=== PATIENT | female | born 1985 | race Two or more races ===

== ENCOUNTER 2017-06-17 22:19 | Emergency (ER) | payer SELFPAY ==
[2017-06-18] MEDS ORDERED: IBUPROFEN 600 MG TABLET PO ONE (00:11)
[2017-06-18] MEDS ORDERED: PSEUDOEPHEDRINE HCL 30 MG TABLET PO ONE (00:11)
[2017-06-18] MEDS ORDERED: LORATADINE 10 MG TABLET PO ONE (00:11)
[2017-06-18] MEDS ORDERED: GUAIFENESIN 600 MG TABLET.SA PO ONE (00:11)
[2017-06-18 00:27] VITALS: BP 112/76
--- NOTE | 2017-06-18 00:28 | ER Document Report ---
ED Flu Like - General Chief Complaint: Flu Symptoms Stated Complaint: DIZZINESS Time Seen by Provider: 06/17/17 23:53 Mode of Arrival: Ambulatory Information source: Patient Notes: 31-year-old female presents to ED for cough cold congestion flulike symptoms 4 days. She states she is also had ear pain for the 4 days with headache sneezing runny nose. TRAVEL OUTSIDE OF THE [place] IN LAST 30 DAYS: No - HPI Onset: Other - 4 days Timing/Duration: Persistent Quality of pain: Achy Severity: Moderate Pain Level: 3 Associated symptoms: Body/muscle aches, Chills, Earache, Fever, Rhinnorhea, Sinus pain/drainage, Shortness of breath, Sore throat Similar symptoms previously: Yes Recently seen / treated by doctor: No - Related Data Allergies/Adverse Reactions: No Known Allergies Allergy (Unverified 06/17/17 23:38) Past Medical History - General Information source: Patient - Social History Smoking Status: Never Smoker Cigarette use (# per day): No Chew tobacco use (# tins/day): No Smoking Education Provided: No Frequency of alcohol use: None Drug Abuse: None Occupation: [employer] Lives with: Family Family History: Reviewed & Not Pertinent Patient has suicidal ideation: No Patient has homicidal ideation: No - Past Medical History Cardiac Medical History: Reports: None Pulmonary Medical History: Reports: None EENT Medical History: Reports: None Neurological Medical History: Reports: None Endocrine Medical History: Reports: None Renal/ Medical History: Reports: None Malignancy Medical History: Reports: None GI Medical History: Reports: None Musculoskeltal Medical History: Reports None Skin Medical History: Reports None Psychiatric Medical History: Reports: None Traumatic Medical History: Reports: None Infectious Medical History: Reports: None Surgical Hx: Negative Past Surgical History: Reports: None - Immunizations Immunizations up to date: Yes Review of Systems - Review of Systems Constitutional: Fever, Recent illness EENT: Ear pain, Nose discharge, Sinus pressure, Sinus discharge, Throat pain Respiratory: Cough Gastrointestinal: No symptoms reported Genitourinary: No symptoms reported Musculoskeletal: Muscle pain Skin: No symptoms reported Neurological/Psychological: Headaches -: Yes All other systems reviewed and negative Physical Exam - Vital signs Vitals: Temp Pulse Resp BP Pulse Ox 98.5 F 68 18 121/64 99 06/17/17 22:57 06/17/17 22:57 06/17/17 22:57 06/17/17 22:57 06/17/17 22:57 Interpretation: Normal - HEENT Head: Normocephalic, Atraumatic Eyes: Normal Pupils: PERRL Ears: Normal External canal: Normal Tympanic membrane: Normal Sinus: Normal Nasal: Purulent discharge, Swelling Mouth/Lips: Normal Mucous membranes: Normal Pharynx: Post nasal drainage. No: Erythema, Exudate, Peritonsillar abscess, Tonsillar hypertrophy Neck: Normal - Respiratory Respiratory status: No respiratory distress Chest status: Nontender Breath sounds: Nonproductive cough. No: Productive cough, Rales, Rhonchi, Stridor, Wheezing Chest palpation: Normal - Neurological Neuro grossly intact: Yes Cognition: Normal Orientation: AAOx4 [place] Coma Scale Eye Opening: Spontaneous [place] Coma Scale Verbal: Oriented [place] Coma Scale Motor: Obeys Commands [place] Coma Scale Total: 15 Speech: Normal Cranial nerves: Normal Cerebellar coordination: Normal Motor strength normal: LUE, RUE, LLE, RLE Additional motor exam normals: Equal manager corporate Babinski reflex: Normal (flexor plantar) Sensory: Normal Knee - Reflex grade: 2 = Normal Ankle - Reflex grade: 2 = Normal Course - Re-evaluation Re-evalutation: 06/18/17 01:10 Consistent with a couple respiratory infection. Patient was treated with Claritin, Sudafed, Mucinex, and ibuprofen and instructions given concerning the same medications for home use as well as Flonase. Patient was discharged home to follow-up with her primary doctor. - Vital Signs Vital signs: Temp Pulse Resp BP Pulse Ox 98.2 F 95 16 112/76 99 06/18/17 00:22 06/18/17 00:22 06/18/17 00:22 06/18/17 00:22 06/17/17 22:57 Discharge - Discharge Clinical Impression: URI (upper respiratory infection) Qualifiers: URI type: unspecified URI Qualified Code(s): J06.9 - Acute upper respiratory infection, unspecified Condition: Stable Disposition: HOME, SELF-CARE Instructions: Family Physicians / Practices Additional Instructions: UPPER RESPIRATORY ILLNESS: You have a viral infection of the respiratory passages -- a "cold." This common infection causes nasal congestion, drainage, and often sore throat and cough. It is highly contagious. The disease usually lasts about 10 to 14 days. There is no "cure" for the viral infection -- it must run its course. If there is a complication, such as bacterial infection in the nose, sinuses, middle ear, or bronchial tubes, antibiotics may be required. The antibiotics won't affect the virus. Drink plenty of fluids. A humidifier may help. An expectorant medication or decongestant may make you more comfortable. Use acetaminophen or ibuprofen for fever or aches. See the doctor if fever persists over two days, if there is any significant worsening of your symptoms, or if you simply fail to improve as expected. DECONGESTANT MEDICATION: A decongestant medicine has been suggested. Often this medicine is combined in the same tablet with an antihistamine or expectorant. This type of medicine is helpful in treating a bad cold or sinus condition, as well as in treatment of the nasal congestion of hay fever. It is not of much benefit for lung infections. Decongestant medicines are related to stimulants. They can cause an increase in blood pressure and heart rate. Persons with heart disease and high blood pressure should not take decongestants without discussing this with the physician. If you develop palpitations, chest pain, headache, or tremors, stop the medicine and consult your physician. COUGH-SUPPRESSANT & EXPECTORANT MEDICATION: You are to use a cough medication as needed for relief of symptoms. This medicine is a combination of an expectorant (to make the mucous thinner and more easily "coughed up") and a cough suppressant (to reduce the frequency of coughing). The cough-suppressant medicine is related to narcotics. You may experience mild nausea and sleepiness. Some patients who are very sensitive to narcotics may have stomach pain from this medicine. Taking the medicine with food reduces these side effects. Do not drive or work with machinery until you know how this medicine affects you. The expectorant should have no side effects. Iodine-containing expectorants (such as organidin) should not be taken by persons with active thyroid disease unless approved by your doctor. Call the doctor if you develop shortness of breath, hives, rash, itching, lightheadedness, or severe nausea and vomiting. USE OF ACETAMINOPHEN (Tylenol): Acetaminophen may be taken for pain relief or fever control. It's much safer than aspirin, offering a wider range of "safe" dosages. It is safe during . Some brand names are Tylenol, Panadol, Datril, Anacin 3, Tempra, and Liquiprin. Acetaminophen can be repeated every four hours. The following are maximum recommended dosages: >89 pounds or adults 650 mg to 900 mg Acetaminophen can be repeated every four hours. Maximum dose not to exceed 4000 mg a day. You were treated with Claritin 10 mg Sudafed 30 mg Mucinex 600 mg and ibuprofen 600 mg in the emergency room for your cough cold and congestion. These are over -the-counter medications and you can get these at your local pharmacy. I also recommend use of Flonase according to the package instructions. FOLLOW-UP CARE: If you have been referred to a physician for follow-up care, call the physician s office for an appointment as you were instructed or within the next two days. If you experience worsening or a significant change in your symptoms, notify the physician immediately or return to the Emergency Department at any time for re-evaluation. Forms: Return to Work
== END 2017-06-18 00:34 | disposition home or self-care (01) ==
LOC: ER 22:19
DX: J06.9 Acute upper respiratory infection, unspecified (principal); R42 Dizziness and giddiness; R51 Headache; M79.1 Myalgia; R50.9 Fever, unspecified
CPT/HCPCS: 99284

== ENCOUNTER 2017-08-25 23:52 | Emergency (ER) | payer MEDICAID ==
[2017-08-25 23:57] VITALS: BP 114/64
[2017-08-26 00:52] LABS: APPEARANCE,URINE CLEAR; BILIRUBIN,URINE NEGATIVE (NEGATIVE); COLOR,URINE YELLOW; GLUCOSE, URINE NEGATIVE (NEGATIVE); KETONES,URINE NEGATIVE (NEGATIVE); LEUKOCYTE ESTERASE,URINE NEGATIVE (NEGATIVE); NITRITE,URINE NEGATIVE (NEGATIVE); PROTEIN,URINE NEGATIVE (NEGATIVE); URINE SPECIFIC GRAVITY 1.008; UROBILINOGEN,URINE NEGATIVE mg/dL (<2.0)
--- NOTE | 2017-08-26 01:01 | ER Document Report ---
ED General - General Chief Complaint: Vaginal Itching Stated Complaint: VAGINAL RASH Time Seen by Provider: 08/26/17 00:16 Mode of Arrival: Ambulatory Information source: Patient TRAVEL OUTSIDE OF THE [place] IN LAST 30 DAYS: No - HPI Notes: 31-year-old female otherwise healthy presents to the emergency department with report that she had a Pap smear last week without complication, but since then she reports mild redness and itching around the vaginal area with pain over the left lower quadrant region. The patient denies any new creams or exposures or new detergents or new underwear. She denies any vaginal discharge. She has no history of diabetes, but there is a family history of diabetes. There has been no dysuria or frequency. No other skin rash. The patient reports no prior history of the same. The patient went to have the pelvic exam performed because of having irregular menstrual cycles and being somewhat late on her menstrual cycle. - Related Data Allergies/Adverse Reactions: No Known Allergies Allergy (Unverified 06/17/17 23:38) Past Medical History - General Information source: Patient - Social History Smoking Status: Never Smoker Frequency of alcohol use: None Drug Abuse: None Lives with: Friend Family History: DM Renal/ Medical History: Denies: Hx Peritoneal Dialysis - Immunizations Immunizations up to date: Yes Review of Systems - Review of Systems Notes: REVIEW OF SYSTEMS: CONSTITUTIONAL : Denies fever, chills, or sweats. Denies recent illness. EENT: Denies eye, ear, throat, or mouth pain or symptoms. Denies nasal or sinus congestion or discharge. Denies throat, tongue, or mouth swelling or difficulty swallowing. CARDIOVASCULAR: Denies chest pain. Denies palpitations or racing or irregular heart beat. Denies ankle edema. RESPIRATORY: Denies cough, cold, or chest congestion. Denies shortness of breath, difficulty breathing, or wheezing. GASTROINTESTINAL: Denies abdominal distention. Denies nausea, vomiting, or diarrhea. Denies blood in vomitus, stools, or per rectum. Denies black, tarry stools. Denies constipation. GENITOURINARY: Denies difficulty urinating, painful urination, burning, frequency, blood in urine, or discharge. FEMALE GENITOURINARY: Denies vaginal discharge or odor. MUSCULOSKELETAL: Denies back or neck pain or stiffness. Denies joint pain or swelling. SKIN: Denies lesions or sores. HEMATOLOGIC : Denies easy bruising or bleeding. LYMPHATIC: Denies swollen, enlarged glands. NEUROLOGICAL: Denies confusion or altered mental status. Denies passing out or loss of consciousness. Denies dizziness or lightheadedness. Denies headache. Denies weakness or paralysis or loss of use of either side. Denies problems with gait or speech. Denies sensory loss, numbness, or tingling. Denies seizures. PSYCHIATRIC: Denies anxiety or stress. Denies depression, suicidal ideation, or homicidal ideation. ALL OTHER SYSTEMS REVIEWED AND NEGATIVE. Dictation was performed using [employer] voice recognition software Physical Exam - Vital signs Vitals: Temp Pulse Resp BP Pulse Ox 98.2 F 73 12 114/64 98 08/25/17 23:55 08/25/17 23:55 08/25/17 23:55 08/25/17 23:55 08/25/17 23:55 - Notes Notes: PHYSICAL EXAMINATION: GENERAL: Well-appearing, well-nourished and in no acute distress. HEAD: Atraumatic, normocephalic. EYES: Pupils equal round and reactive to light, extraocular movements intact, conjunctiva are normal. ENT: Nares patent, oropharynx clear without exudates. Moist mucous membranes. NECK: Normal range of motion, supple without lymphadenopathy LUNGS: Breath sounds clear to auscultation bilaterally and equal. No wheezes rales or rhonchi. HEART: Regular rate and rhythm without murmurs ABDOMEN: Soft, nontender, nondistended abdomen. No guarding, no rebound. No masses appreciated. Female : Normal external female genitalia. No significant discharge besides mild evidence for ongoing menstrual bleeding. There was an IUD in appropriate location. The patient had mild cervical motion pain, but mainly left adnexal pain noted on exam. No obvious mass appreciated. Musculoskeletal: Normal range of motion, no pitting or edema. No cyanosis. NEUROLOGICAL: Cranial nerves grossly intact. Normal speech, normal gait. Normal sensory, motor exams PSYCH: Normal mood, normal affect. SKIN: Course - Re-evaluation Re-evalutation: 08/26/17 01:07 Ultrasound, blood work, DNA probe, urinalysis, urine , and wet prep ordered. Consider ovarian cyst versus PID. No evidence for obvious yeast infection or allergic response. 08/26/17 01:52 Laboratory studies show mild bacterial vaginosis and possible yeast infection, although there is not significant erythema noted on the vaginal exam. CBC was normal, urinalysis normal. No evidence for . Ultrasound is pending. - Vital Signs Vital signs: Temp Pulse Resp BP Pulse Ox 98.2 F 73 12 114/64 98 08/25/17 23:55 08/25/17 23:55 08/25/17 23:55 08/25/17 23:55 08/25/17 23:55 - Laboratory Result Diagrams: 08/26/17 01:15 Laboratory results interpreted by me: 08/26/17 00:30 Urine Blood SMALL H Discharge - Discharge Clinical Impression: Bacterial vaginosis Condition: Stable Disposition: HOME, SELF-CARE Instructions: Vaginosis, Bacterial ([facility]) Prescriptions: Metronidazole [Flagyl 500 mg Tablet] 500 mg PO BID #14 tablet
[2017-08-26 01:16] LABS: BACTERIA (WET MOUNT) 4+ BACTERIA SEEN; EPITHELIALS (WET MOUNT) 3+ EPITHELIALS SEEN; RBCS (WET MOUNT) 1+ RBCS SEEN; T.VAGINALIS (WET MOUNT) NO TRICHOMONAS SEEN; WBCS (WET MOUNT) 4+ WBCS SEEN; YEAST (WET MOUNT) YEAST SEEN
[2017-08-26 01:23] LABS: ABSOLUTE BASOPHILS # (AUTO) 0.1 10^3/uL (0.0-0.2); ABSOLUTE EOSINOPHILS # (AUTO) 0.2 10^3/uL (0.0-0.6); ABSOLUTE LYMPHOCYTES (AUTO) 2.1 10^3/uL (0.5-4.7); ABSOLUTE MONOCYTES (AUTO) 0.6 10^3/uL (0.1-1.4); ABSOLUTE NEUT (AUTO) 3.8 10^3/uL (1.7-8.2); EOSINOPHILS % (AUTO) 3.3 % (0-6); HEMATOCRIT 43.1 % (36.0-47.0); HEMOGLOBIN 14.7 g/dL (12.0-15.5); LYMPHOCYTES % (AUTO) 31.1 % (13-45); MEAN CORPUSCULAR HEMOGLOBIN 28.9 pg (27.0-33.4); MEAN CORPUSCULAR HGB CONC 34.1 g/dL (32.0-36.0); MEAN CORPUSCULAR VOLUME 85 fl (80-97); MONOCYTES % (AUTO) 8.4 % (3-13); PLATELET COUNT 197 10^3/uL (150-450); RED BLOOD COUNT 5.09 10^6/uL (3.72-5.28); RED CELL DISTRIBUTION WIDTH 13.3 % (11.5-14.0); SEGMENTED NEUTROPHILS % (AUTO) 56.2 % (42-78); TOTAL CELLS COUNTED % (AUTO) 100 %; WHITE BLOOD COUNT 6.7 10^3/uL (4.0-10.5)
[2017-08-26] MEDS ORDERED: FLUCONAZOLE 100 MG TABLET PO ONE (01:54)
[2017-08-26 02:38] LABS: CHLAM PCR NOT DETECTED (NOT DETECT); GON PCR NOT DETECTED (NOT DETECT)
--- NOTE | 2017-08-26 04:12 | RADIOLOGY REPORT (SQ) ---
EXAM DESCRIPTION: Complete pelvic ultrasound obtained with transvaginal imaging. CLINICAL HISTORY: 31 years Female, Left adnexal pain COMPARISON: None. TECHNIQUE: Complete pelvic ultrasound obtained with transvaginal imaging. Limited color spectral Doppler imaging of the ovaries. FINDINGS: The uterus measures 7.3 x 4.3 x 3.7 cm. IUD identified in the endometrium appearing to be in appropriate ultrasound position. The cervix measures 2.3 cm. No myometrial abnormalities. No free pelvic fluid. The right ovary measures 2.6 x 2.2 x 1.2 cm. Left ovary measures 4.8 x 3.6 x 3.7 cm. There is a 3.4 x 3.1 x 3.3 cm simple left ovarian cyst. This is almost certainly benign. No imaging follow-up required. Limited color and spectral Doppler images demonstrate flow within the ovaries bilaterally. IMPRESSION: No abnormality noted on pelvic ultrasound. IUD in place
== END 2017-08-26 04:37 | disposition home or self-care (01) ==
LOC: ER 23:52
DX: N76.0 Acute vaginitis (principal); B96.89 Other specified bacterial agents as the cause of diseases classified elsewhere; N83.292 Other ovarian cyst, left side; R10.32 Left lower quadrant pain; Z97.5 Presence of (intrauterine) contraceptive device; Z98.890 Other specified postprocedural states
CPT/HCPCS: 99284; 36415; 87210; 85025; 81025; 81001; 87491; 87591; 76856; 93976; J3490

== ENCOUNTER 2019-05-20 17:36 | Emergency (ER) | payer MEDICAID ==
[2019-05-20 17:44] VITALS: BP 140/60
== END 2019-05-20 19:45 | disposition left against medical advice (07) ==
LOC: ER 17:36
DX: Z53.21 Procedure and treatment not carried out due to patient leaving prior to being seen by health care provider (principal)

== ENCOUNTER 2019-08-02 10:17 | Emergency (ER) | payer SELFPAY ==
[2019-08-02 10:22] VITALS: BP 127/77
[2019-08-02] MEDS ORDERED: PREDNISONE 20 MG TABLET PO ONE (10:35)
--- NOTE | 2019-08-02 10:38 | ER Document Report ---
HPI - HPI Patient complains to provider of: Skin rash Time Seen by Provider: 08/02/19 10:31 Onset: Other - 3 weeks Onset/Duration: Worse Pain Level: 2 Context: Patient complains of skin rash to the extremities and trunk for the past 3 weeks. Patient denies any recent new medications foods or detergents. Patient denies any difficulty breathing or difficulty swallowing. Associated Symptoms: denies: Nonproductive cough, Productive cough, Fever, Sore throat Exacerbated by: Denies Relieved by: Denies Similar symptoms previously: No Recently seen / treated by doctor: No - ROS ROS below otherwise negative: Yes Systems Reviewed and Negative: Yes All other systems reviewed and negative - CARDIOVASCULAR Cardiovascular: DENIES: Chest pain - RESPIRATORY Respiratory: DENIES: Trouble Breathing, Coughing - GASTROINTESTINAL Gastrointestinal: DENIES: Nausea, Patient vomiting - REPRODUCTIVE Reproductive: DENIES: : - DERM Skin Color: Normal Skin Problems: Rash Past Medical History - General Information source: Patient - Social History Smoking Status: Never Smoker Chew tobacco use (# tins/day): No Frequency of alcohol use: None Drug Abuse: None Lives with: Family Family History: Reviewed & Not Pertinent, DM Patient has suicidal ideation: No Patient has homicidal ideation: No - Medical History Medical History: Negative Renal/ Medical History: Denies: Hx Peritoneal Dialysis Surgical Hx: Negative - Immunizations Immunizations up to date: Yes Vertical Provider Document - CONSTITUTIONAL Agree With Documented VS: Yes Exam Limitations: No Limitations General Appearance: WD/WN, No Apparent Distress - INFECTION CONTROL TRAVEL OUTSIDE OF THE [place] IN LAST 30 DAYS: No - HEENT HEENT: Atraumatic, Normal ENT Exam, Normocephalic - NECK Neck: Normal Inspection, Supple - RESPIRATORY Respiratory: Breath Sounds Normal, No Respiratory Distress - CARDIOVASCULAR Cardiovascular: Regular Rate, Regular Rhythm, No Murmur - BACK Back: Normal Inspection - MUSCULOSKELETAL/EXTREMETIES Musculoskeletal/Extremeties: AMADOU ARRIAGA - NEURO Level of Consciousness: Awake, Alert, Appropriate Motor/Sensory: No Motor Deficit - DERM Integumentary: Warm, Dry, Rash - Erythematous maculopapular rash in patches to the trunk and scattered lesions to the extremities Course - Re-evaluation Re-evalutation: 08/02/19 10:43 Patient with a rash to the trunk and extremities. Concern for Hans Manav or acute anaphylaxis. Discussed with patient possibility of possible viral source of rash although allergic source could not be excluded. Discussed with patient worsening signs or symptoms that she should return immediately for. Patient verbalized understanding of instructions and is agreeable with discharge plan of care. - Vital Signs Vital signs: Temp Pulse Resp BP Pulse Ox 97.8 F 81 16 127/77 H 100 08/02/19 10:29 08/02/19 10:21 08/02/19 10:21 08/02/19 10:21 08/02/19 10:21 Discharge - Discharge Clinical Impression: Skin rash Condition: Stable Disposition: HOME, SELF-CARE Instructions: Antihistamines ([facility]), Use of Diphenhydramine, Steroid Medication Additional Instructions: Return immediately for any new or worsening symptoms Followup with your primary care provider, call tomorrow to make a followup appointment Prescriptions: Triamcinolone Acetonide [Aristocort 0.1% Cream] 1 applic TP TID #60 gm Prednisone [Deltasone 10 mg Tablet] 10 mg PO ASDIR #21 tablet Famotidine [Pepcid 20 mg Tablet] 20 mg PO BID #12 tablet Referrals: [facility] [Provider Group] - Follow up as needed [facility] ([place], [place]) [Provider Group] - Follow up as needed
== END 2019-08-02 10:42 | disposition home or self-care (01) ==
LOC: ER 10:17
DX: R21 Rash and other nonspecific skin eruption (principal)
CPT/HCPCS: 99282; J7512

== ENCOUNTER 2020-04-09 15:15 | Emergency (ER) | payer SELFPAY ==
[2020-04-09] MEDS ORDERED: HYDROCODONE/ACETAMINOPHEN 5-325 MG TABLET PO ONE (17:25)
--- NOTE | 2020-04-09 17:28 | ER Document Report ---
HPI - HPI Time Seen by Provider: 04/09/20 17:22 Context: Patient states that she fell in her bathroom about 3 months ago and on her right shoulder. Patient states that she has had right clavicular pain for the past 2 weeks. Patient complains of right upper back pain for the past 2 weeks as well. Patient is right-hand dominant. Patient denies any cough cold symptoms or fever. Associated Symptoms: denies: Nonproductive cough, Productive cough Exacerbated by: Movement Relieved by: Denies Similar symptoms previously: No Recently seen / treated by doctor: No - ROS ROS below otherwise negative: Yes Systems Reviewed and Negative: Yes All other systems reviewed and negative - CONSTITUTIONAL Constitutional: DENIES: Fever - NEURO Neurology: DENIES: Headache, Weakness - CARDIOVASCULAR Cardiovascular: DENIES: Chest pain - RESPIRATORY Respiratory: DENIES: Coughing - REPRODUCTIVE Reproductive: DENIES: : - MUSCULOSKELETAL Musculoskeletal: REPORTS: Back Pain - DERM Skin Color: Normal Skin Problems: None Past Medical History - General Information source: Patient - Social History Smoking Status: Never Smoker Frequency of alcohol use: None Drug Abuse: None Occupation: [employer] Lives with: Family Family History: Reviewed & Not Pertinent, DM - Medical History Medical History: Negative Renal/ Medical History: Denies: Hx Peritoneal Dialysis Surgical Hx: Negative - Immunizations Immunizations up to date: Yes Vertical Provider Document - CONSTITUTIONAL Agree With Documented VS: Yes Exam Limitations: No Limitations General Appearance: WD/WN, No Apparent Distress - INFECTION CONTROL TRAVEL OUTSIDE OF THE [place] IN LAST 30 DAYS: No - HEENT HEENT: Atraumatic, Normocephalic - NECK Neck: Normal Inspection, Supple Notes: No meningismus - RESPIRATORY Respiratory: Breath Sounds Normal, No Respiratory Distress - CARDIOVASCULAR Cardiovascular: Regular Rate, Regular Rhythm Pulses: Normal: Radial - BACK Back: Abnormal Inspection - Right trapezius muscle tenderness with spasm - MUSCULOSKELETAL/EXTREMETIES Musculoskeletal/Extremeties: MAEW, FROM, Tender - Tenderness to medial right clavicular area, no obvious swelling or deformity - NEURO Level of Consciousness: Awake, Alert, Appropriate Motor/Sensory: No Motor Deficit, No Sensory Deficit - DERM Integumentary: Warm, Dry, No Rash Course - Re-evaluation Re-evalutation: 04/09/20 18:26 X-ray reviewed, no fracture. Suspect likely musculoskeletal strain at this time. Good return precautions discussed with patient. Patient verbalized understanding and is agreeable with discharge plan of care. - Vital Signs Vital signs: Temp Pulse Resp BP Pulse Ox 98.2 F 77 16 143/59 H 100 04/09/20 15:29 04/09/20 15:29 04/09/20 15:29 04/09/20 15:29 04/09/20 15:29 - Laboratory Results Critical Laboratory Results Reviewed: No Critical Results - Radiology Results Critical Radiology Results Reviewed: No Critical Results Discharge - Discharge Clinical Impression: Strain of right trapezius muscle Qualifiers: Encounter type: initial encounter Qualified Code(s): S46.811A - Strain of other muscles, fascia and tendons at shoulder and upper arm level, right arm, initial encounter Condition: Stable Disposition: HOME, SELF-CARE Instructions: Muscle Relaxers ([facility]), Muscle Strain ([facility]), Warm Packs ([facility]) Additional Instructions: Return immediately for any new or worsening symptoms Followup with your primary care provider, call tomorrow to make a followup appointment Follow-up with orthopedics for any persistent pain or problems Prescriptions: Cyclobenzaprine HCl [Flexeril 10 Mg Tablet] 10 mg PO TID #15 tablet Lidocaine [Lidoderm 5% (700 mg) Transdermal Patch] 1 patch TP DAILY PRN #10 adh..patch PRN Reason: Naproxen [Naprosyn 250 Nmg Tablet] 1 tab PO BID #14 tablet Forms: Return to Work Referrals: [facility] [Provider Group] - Follow up as needed
--- NOTE | 2020-04-09 18:13 | RADIOLOGY REPORT (SQ) ---
EXAM DESCRIPTION: CLAVICLE RIGHT IMAGES COMPLETED DATE/TIME: 04/09/2020 5:57 pm REASON FOR STUDY: hx fall, r clavicle pain COMPARISON: None. NUMBER OF VIEWS: Two views right clavicle. LIMITATIONS: None. FINDINGS: There is no acute or significant bone, joint or soft tissue abnormality. OTHER: No other significant finding. IMPRESSION: NORMAL STUDY. TECHNICAL DOCUMENTATION: JOB ID: [id number] Reading location - IP/workstation name: [email or web address]
[2020-04-09] MEDS ORDERED: LIDOCAINE 5% (700 MG) TRANSDERMAL ADH..PATCH TP ONE (18:26)
[2020-04-09 21:45] VITALS: BP 126/68
== END 2020-04-09 21:45 | disposition home or self-care (01) ==
LOC: ER 15:15
DX: S46.811A Strain of other muscles, fascia and tendons at shoulder and upper arm level, right arm, initial encounter (principal); W18.2XXA Fall in (into) shower or empty bathtub, initial encounter
CPT/HCPCS: 99283